=== PATIENT | male | born 1980 | race African-American/Black ===

== ENCOUNTER 2017-12-16 16:20 | Emergency (ER) | payer SELFPAY ==
[~2017-12-16] VITALS: Ht 175.3 cm; Wt 82.0 kg
[2017-12-16 19:45] VITALS: BP 122/93
[2017-12-16] MEDS ORDERED: TETRACAINE 0.5% OPHTH DROPS 4ML OP ONE (19:45)
[2017-12-16] MEDS ORDERED: FLUORESCEIN SODIUM 1MG/STRIP OP ONE (19:45)
== END 2017-12-16 20:49 | disposition home or self-care (01) ==
LOC: ER 17:05
DX: H10.89 Other conjunctivitis (principal); L30.9 Dermatitis, unspecified; B00.9 Herpesviral infection, unspecified
CPT/HCPCS: 99283

== ENCOUNTER 2018-10-02 12:21 | Emergency (ER) | payer SELFPAY ==
[~2018-10-02] VITALS: Ht 177.8 cm; Wt 89.0 kg
[2018-10-02] MEDS ORDERED: LIDOCAINE HCL/PF 1% 10 MG/ML 5ML VIAL IJ ONE (13:30)
[2018-10-02 14:24] VITALS: BP 131/89
== END 2018-10-02 14:46 | disposition home or self-care (01) ==
LOC: ER 12:21
DX: L02.11 Cutaneous abscess of neck (principal); F17.200 Nicotine dependence, unspecified, uncomplicated; F12.10 Cannabis abuse, uncomplicated
CPT/HCPCS: 10060; 99283; J3490

== ENCOUNTER 2018-10-04 11:56 | Emergency (ER) | payer SELFPAY ==
[~2018-10-04] VITALS: Ht 177.8 cm; Wt 90.0 kg
[2018-10-04 13:55] VITALS: BP 126/88
== END 2018-10-04 13:56 | disposition home or self-care (01) ==
LOC: ER 12:47
DX: L02.01 Cutaneous abscess of face (principal); F17.200 Nicotine dependence, unspecified, uncomplicated; F12.10 Cannabis abuse, uncomplicated
CPT/HCPCS: 82962; 99283